=== PATIENT | female | born 1970 | race Caucasian/White ===

== ENCOUNTER → 2016-11-26 | Outpatient (CLI) | payer OTHER ==
[~2016-11-26] MED LIST: CALC-279 PO; CETI10TA84 PO; CHOL100010 PO; CLON0.5T3 PO; CYAN10005 SL; CYCL10TA6 PO; DICY10CA12 PO; DRGTP50 TOP; ESCI1TAB6 PO; FURO-85 PO; GABA600T PO; GLYC1TAB18 PO; LEVO175T3 PO; LINA1CAP2 PO; MAGN1CAP2 PO; MIRT30TA2 PO; MULT-506 PO; NUTR1LIQ94 PO; ONDA4TAB46 PO; OXYC-57 PO; OXYC1TAB3 PO; PANT1TAB48 PO; POLY335025 PO; POTA10CA28 PO; PRM625 PO; PROGLYCEM PO; SPIR25TA89 PO; SUMA50TA15 PO; TRIATAB3 PO; ZINC100T2 PO; [UNRECOGNIZED DRUG - CODE] PO; [UNRECOGNIZED DRUG - CODE] PO
[2016-11-26 18:36] LABS: BLOOD UREA NITROGEN 12 mg/dl (7-18); BUN/CREATININE RATIO 11.9 (10-20); CARBON DIOXIDE 31 mmol/L (21-32); CHLORIDE 98 mmol/L (98-107); GLUCOSE 85 mg/dl (70-99); POTASSIUM 2.9 mmol/L (3.5-5.1); SODIUM 136 mmol/L (136-145)
[2016-11-26 18:44] LABS: PREALBUMIN 21.3 mg/dl (20-40); TOTAL IRON BINDING CAPACITY 439 mcg/dl (250-450)
--- NOTE | 2016-12-04 09:17 | CODING QUERY MEDICAL NECESSITY ---
CQSUPPORTING DIAGNOSIS NEEDED A supporting diagnosis is required for the test/procedure performed on this patient in order for us to be reimbursed by the patient's insurance. Please provide a supporting diagnosis for the following test/procedure listed below next to the test name along with your signature. *If there is no additional diagnosis for this patient that would support the following test/procedure please document that below next to the test/procedure. Test(s)/Procedure(s) that require a supporting diagnosis: DOS 11/26/16 VITAMINS AND METABOLIC FUNCTION-VITAMIN D AND VITAMIN B12 Provider Signature: Date: Thank you Vira Gamble Health Information Management Once completed, please kindly fax back to [phone] For questions please call [phone]
== END | disposition home or self-care (01) ==
LOC: C.LABMFLN 17:14
PROVIDERS: ATTEND Family Medicine
DX: E16.2 Hypoglycemia, unspecified (principal); E03.9 Hypothyroidism, unspecified; M85.80 Other specified disorders of bone density and structure, unspecified site; R60.9 Edema, unspecified; Z98.84 Bariatric surgery status; E55.9 Vitamin D deficiency, unspecified; E53.8 Deficiency of other specified B group vitamins

== ENCOUNTER → 2016-12-24 | Outpatient (CLI) | payer OTHER ==
[2016-12-24 18:13] LABS: MANUAL MICROSCOPIC REQUIRED? NO; REVIEW REQ? YES; URINE APPEARANCE CLEAR (CLEAR); URINE BILIRUBIN NEG (NEG); URINE COLOR YELLOW; URINE NITRITE NEG (NEG); UROBILINOGEN NEG (NEG); ZZUR CULT IF INDIC CLEAN CATCH YES
== END | disposition home or self-care (01) ==
LOC: C.LABMFLN 10:28
PROVIDERS: ATTEND Urology
DX: R39.15 Urgency of urination (principal); R82.8 Abnormal findings on cytological and histological examination of urine

== ENCOUNTER → 2017-03-13 | Outpatient (CLI) | payer OTHER ==
[~2017-03-13] MED LIST changes: -GLYC1TAB18 PO; +GLYC2TAB16 PO; +OPTIRAY 320 IV PRN
--- NOTE | 2017-03-13 11:50 | DIAGNOSTIC IMAGING REPORT ---
CT ABD/PELVIS COMBO WITH ORAL CLINICAL HISTORY: Generalized abdominal pain COMPARISON STUDY: None. TECHNIQUE: Unenhanced images are obtained through the abdomen and pelvis. The patient was then scanned in a dynamic helical fashion during intravenous administration of [address] DOSE: 551.93 mGy.cm FINDINGS: Lower chest: There are minimal left basilar atelectatic changes. Liver: The contrast-enhanced liver is normal in size, contour, and attenuation. There is no intrahepatic biliary ductal dilatation. The hepatic veins and portal veins are patent. Gallbladder: Surgically absent Spleen: Normal in size and attenuation. Pancreas: Unremarkable. Adrenal glands: Unremarkable. Kidneys: There is a punctate nonobstructing upper pole left renal calculus. There is a 15 mm upper pole left renal cyst. There is there is a 3 mm hypodensity within the lower pole the left kidney likely representing a cyst. There are multiple small right renal cysts, the largest of which measures 9 mm.. Bowel: There are postsurgical changes of a gastric bypass. There are no transition zones indicate bowel obstruction. There is moderately extensive fecal retention. Clinical correlation in regards to constipation is recommended. Peritoneum: There is no intraperitoneal free air or abdominal ascites. Vasculature: The abdominal aorta is normal in course and caliber. Adenopathy: None. Pelvic viscera: The uterus appears surgically absent Skeletal structures: Degenerative changes are present most pronounced the L4-5 level. IMPRESSION: 1. Postsurgical changes are prior gastric bypass 2. No evidence of bowel obstruction. No evidence of free air 3. No acute inflammatory changes 4. Moderate fecal retention. Clinical correlation in regards to constipation is recommended Electronically signed by: Oscar Lehman M.D. 03/13/2017 11:49 AM Dictated Date/Time: 03/13/2017 11:43 AM
== END | disposition home or self-care (01) ==
LOC: C.CTS 11:10
PROVIDERS: ATTEND Surgery
DX: R10.9 Unspecified abdominal pain (principal); K59.00 Constipation, unspecified

== ENCOUNTER → 2017-03-30 | Outpatient (CLI) | payer OTHER ==
[~2017-03-30] MED LIST changes: -OPTIRAY 320 IV PRN
[2017-03-30 18:17] LABS: ALT/SGPT 19 U/L (12-78); BLOOD UREA NITROGEN 14 mg/dl (7-18); BUN/CREATININE RATIO 15.6 (10-20); CARBON DIOXIDE 31 mmol/L (21-32); CHLORIDE 101 mmol/L (98-107); CREATININE 0.91 mg/dl (0.60-1.20); GLUCOSE 85 mg/dl (70-99); POTASSIUM 3.5 mmol/L (3.5-5.1); SODIUM 139 mmol/L (136-145)
[2017-03-30 18:22] LABS: HEMATOCRIT 37.6 % (37-47); MEAN CORPUSCULAR HEMOGLOBIN 28.7 pg (25-34); MEAN CORPUSCULAR HGB CONC 31.9 g/dl (32-36); PLATELET COUNT 222 K/uL (130-400); RED BLOOD COUNT 4.18 M/uL (4.2-5.4); WHITE BLOOD COUNT 4.57 K/uL (4.8-10.8)
[2017-03-30 18:27] LABS: ALB/GLOB RATIO 1.1 (0.9-2); ALKALINE PHOSPHATASE 88 U/L (45-117); AST/SGOT 21 U/L (15-37)
[2017-03-30 18:32] LABS: CALCIUM 9.9 mg/dl (8.5-10.1)
== END | disposition home or self-care (01) ==
LOC: C.LABMFLN 16:11
PROVIDERS: ATTEND Family Medicine
DX: R60.9 Edema, unspecified (principal); E87.6 Hypokalemia; N04.9 Nephrotic syndrome with unspecified morphologic changes; R00.0 Tachycardia, unspecified

== ENCOUNTER → 2017-05-28 | Day surgery (SDC) | payer OTHER ==
[2017-05-21 14:49] VITALS: Ht 162.6 cm; Wt 59.1 kg
[~2017-05-28] VITALS: Ht 162.6 cm; Wt 59.1 kg
[~2017-05-28] MED LIST changes: +FENTANYL CITRATE INJ 50 MCG/1 ML 2 ML VIAL ONE; -GLYC2TAB16 PO; +LIDOCAINE HCL 2% 2 ML VIAL (20MG/ML) ONE; -LINA1CAP2 PO; -NUTR1LIQ94 PO; -OXYC-57 PO; -PROGLYCEM PO; +PROPOFOL IV EMULSION 10 MG/ML 20 ML VIAL IV ONE; +SODIUM CHLORIDE 0.9% 500ML 500 ML IV ONE; -TRIATAB3 PO
--- NOTE | 2017-05-28 15:52 | Endo History and Physical ---
History & Physical Date of Service: May 28, 2017. Chief Complaint: Abdominal pain Gastric bypass s/p reversal Referring Physician: Case History of Present Illness 47 yo CF who presents for EGD secondary to abdominal pain and history of gastric bypass with reversal. Past Surgical History Hx Cardiac Surgery: No Hx Internal Defibrillator: No Hx Pacemaker: No Hx Abdominal Surgery: Yes (PARTIAL HYSTER, GASTRIC BYPASS AND REVERSAL, [place], X2) Hx of Implantable Prosthesis: No Hx Post-Op Nausea and Vomiting: No Hx Cancer Surgery: No Hx Thoracic Surgery: No Hx Orthopedic: No Hx Urinary Tract Surgery: No Family History Polyp, IBD Social History Smoking Status: Former Smoker Hx Substance Use: Yes (SEE MED LIST) Hx Alcohol Use: No Allergies Coded Allergies: Gentamicin (Verified Allergy, Unknown, EYE REDNESS AND SWELLING, 05/21/17) Sulfamethoxazole w/Trimethoprim (Verified Allergy, Unknown, RASH, 05/21/17) Trazodone (Verified Allergy, Unknown, HEART RACING AND POUNDING; MIGRAINE , 05/21/17) Current Medications Reported Home Medications Medications Dose Route/Sig Max Daily Dose Days Date Category Micro-K Ext Rel (Potassium Chloride) 10 Meq Capcr 10 Meq PO DAILY PRN 05/21/17 Reported Lasix (Furosemide) 20 Mg Tab 20 Mg PO DAILY PRN 05/21/17 Reported Flexeril (Cyclobenzaprine Hcl) 10 Mg Tab 10 Mg PO TID PRN 05/21/17 Reported Dicyclomine Hcl 10 Mg Cap 1 Cap PO Q8H PRN 05/21/17 Reported Zofran (Ondansetron HCl) 4 Mg Tab 4 Mg PO Q4H PRN 05/21/17 Reported Roxicodone Ir (Oxycodone HCl) 5 Mg Tab 5 Mg PO QID 05/21/17 Reported Fentanyl 50 Mcg Tdsy 1 Patch TOP Q72H 05/21/17 Reported Aldactone (Spironolactone) 25 Mg Tab 25 Mg PO QAM 05/21/17 Reported Proglycem (Diazoxide) 50 Mg/1 Ml Susp 100 Mg PO TID 05/21/17 Reported Lexapro (Escitalopram Oxalate) 5 Mg Tab 5 Mg PO QAM 05/21/17 Reported Premarin (Estrogens Conjugated) 0.625 Mg Tab 0.625 Mg PO QAM 05/21/17 Reported Cytotec (Misoprostol) 200 Mcg Tab 3 Tabs PO BID 05/21/17 Reported Remeron Soltab (Mirtazapine) 30 Mg Soltab 30 Mg PO HS 05/21/17 Reported Levothyroxine Sodium 175 Mcg Tab 1 Tab PO QAM 05/21/17 Reported Zinc 100 Mg Tab 1 Tab PO HS 05/21/17 Reported Calcium Citrate + D (Calcium Citrate-Vitamin D) 1 Tab Tab 1 Tab PO BID 05/21/17 Reported Multivitamin (Multivitamins) Tab 1 Tab PO QAM 05/21/17 Reported Imitrex (Sumatriptan Succinate) 50 Mg Tab 50 Mg PO UD PRN 09/03/14 Reported Miralax (Polyethylene Glycol 3350) 1 Pow Pow 17 Gm PO DAILY PRN 09/03/14 Reported Klonopin (Clonazepam) 0.5 Mg Tab 0.5 Mg PO BID 09/03/14 Reported Vitamin D (Cholecalciferol) 1,000 Inter.unit Tab 1,000 Inter.unit PO M-W-F 09/03/14 Reported Vitamin B-12 (Cyanocobalamin) 1,000 Mcg Tab 1,500 Mcg SL QAM 09/03/14 Reported Zyrtec (Cetirizine HCl) 10 Mg Tab 10 Mg PO QAM 09/03/14 Reported Protonix (Pantoprazole) 40 Mg Tab 40 Mg PO BID 09/03/14 Reported Magnesium (Magnesium Oxide (Mg Supplement) 400 Mg Cap 400 Mg PO HS 09/03/14 Reported Neurontin (Gabapentin) 600 Mg Tab 600 Mg PO QID 09/03/14 Reported Vital Signs Weight (Kilograms): 59.09 Height (Feet): 5 Height (Inches): 4 Date Time Temp Pulse Resp B/P (MAP) Pulse Ox O2 Delivery O2 Flow Rate FiO2 05/28/17 15:07 37.3 96 20 110/76 (87) 99 Room Air Physical Exam General Appearance: WD/WN, no apparent distress Respiratory/Chest: Auscultation: breath sounds normal Cardiovascular: Heart Auscultation: RRR Abdomen: Bowel Sounds: normal Inspection & Palpation: soft, non-distended, no tenderness, guarding & rebound Assessment and Plan Assessment: 47 yo CF who presents for EGD secondary to abdominal pain and history of gastric bypass with reversal. Plan: Proceed with colonoscopy.
--- NOTE | 2017-05-28 16:00 | Discharge Instructions ---
Endoscopy Patient Instructions Date / Procedure(s) Performed May 28, 2017. EGD Allergy Information Coded Allergies: Gentamicin (Verified Allergy, Unknown, EYE REDNESS AND SWELLING, 05/21/17) Sulfamethoxazole w/Trimethoprim (Verified Allergy, Unknown, RASH, 05/21/17) Trazodone (Verified Allergy, Unknown, HEART RACING AND POUNDING; MIGRAINE , 05/21/17) Discharge Date / Findings May 28, 2017. Gastritis s/p biopsies Medication Instructions OK to resume all medications today as prescribed Reported Home Medications Medications Dose Route/Sig Max Daily Dose Days Date Category Micro-K Ext Rel (Potassium Chloride) 10 Meq Capcr 10 Meq PO DAILY PRN 05/21/17 Reported Lasix (Furosemide) 20 Mg Tab 20 Mg PO DAILY PRN 05/21/17 Reported Flexeril (Cyclobenzaprine Hcl) 10 Mg Tab 10 Mg PO TID PRN 05/21/17 Reported Dicyclomine Hcl 10 Mg Cap 1 Cap PO Q8H PRN 05/21/17 Reported Zofran (Ondansetron HCl) 4 Mg Tab 4 Mg PO Q4H PRN 05/21/17 Reported Roxicodone Ir (Oxycodone HCl) 5 Mg Tab 5 Mg PO QID 05/21/17 Reported Fentanyl 50 Mcg Tdsy 1 Patch TOP Q72H 05/21/17 Reported Aldactone (Spironolactone) 25 Mg Tab 25 Mg PO QAM 05/21/17 Reported Proglycem (Diazoxide) 50 Mg/1 Ml Susp 100 Mg PO TID 05/21/17 Reported Lexapro (Escitalopram Oxalate) 5 Mg Tab 5 Mg PO QAM 05/21/17 Reported Premarin (Estrogens Conjugated) 0.625 Mg Tab 0.625 Mg PO QAM 05/21/17 Reported Cytotec (Misoprostol) 200 Mcg Tab 3 Tabs PO BID 05/21/17 Reported Remeron Soltab (Mirtazapine) 30 Mg Soltab 30 Mg PO HS 05/21/17 Reported Levothyroxine Sodium 175 Mcg Tab 1 Tab PO QAM 05/21/17 Reported Zinc 100 Mg Tab 1 Tab PO HS 05/21/17 Reported Calcium Citrate + D (Calcium Citrate-Vitamin D) 1 Tab Tab 1 Tab PO BID 05/21/17 Reported Multivitamin (Multivitamins) Tab 1 Tab PO QAM 05/21/17 Reported Imitrex (Sumatriptan Succinate) 50 Mg Tab 50 Mg PO UD PRN 09/03/14 Reported Miralax (Polyethylene Glycol 3350) 1 Pow Pow 17 Gm PO DAILY PRN 09/03/14 Reported Klonopin (Clonazepam) 0.5 Mg Tab 0.5 Mg PO BID 09/03/14 Reported Vitamin D (Cholecalciferol) 1,000 Inter.unit Tab 1,000 Inter.unit PO M-W-F 09/03/14 Reported Vitamin B-12 (Cyanocobalamin) 1,000 Mcg Tab 1,500 Mcg SL QAM 09/03/14 Reported Zyrtec (Cetirizine HCl) 10 Mg Tab 10 Mg PO QAM 09/03/14 Reported Protonix (Pantoprazole) 40 Mg Tab 40 Mg PO BID 09/03/14 Reported Magnesium (Magnesium Oxide (Mg Supplement) 400 Mg Cap 400 Mg PO HS 09/03/14 Reported Neurontin (Gabapentin) 600 Mg Tab 600 Mg PO QID 09/03/14 Reported Provider Instructions Activity Restrictions - No exercising or heavy lifting for 24 hours. - Do not drink alcohol the day of the procedure. - Do not drive a car or operate machinery until the day after the procedure. - Do not make any important decisions or sign important papers in 24 hours after the procedure. Following Day: - Return to full activity which may include returning to work/school. Diet Start your diet with liquids and light foods (jello, soup, juice, toast). Then eat your usual diet if not nauseated. Treatment For Common After Affects For mild abdominal pain, bloating, or excessive gas: - Rest - Eat lightly - Lie on right side Follow-Up Information Follow-up with Dr. Hackett as scheduled Anesthesia Information What You Should Know You have had a procedure that required some medicine to reduce anxiety and discomfort. This treatment is called moderate sedation. After receiving the treatment, you may be sleepy, but you will be able to breathe on your own. The effects of the treatment may last for several hours. Follow these instructions along with Activity/Diet recommendations noted above: * Do NOT do anything where dizziness or clumsiness would be dangerous. * Rest quietly at home today, then you can be up and about tomorrow. * Have a responsible person stay with you the rest of today. * You may have had an I.V. today. If so, you may take the dressing off later today. Recommendations Call your doctor if: * Trouble breathing * Continuous vomiting for more than 24 hours * Temperature above 101 degrees * Severe abdominal pain or bloating * Pain not relieved by pain medicine ordered * There is increased drainage or redness from any incision * A large amount of rectal bleeding greater than 2-3 tablespoons. (If you had a polyp/s removed or have hemorrhoids, a small amount of blood - from the rectum is to be expected.) * You have any unanswered questions or concerns. IN THE EVENT OF A SERIOUS EMERGENCY, GO TO THE NEAREST EMERGENCY ROOM Your discharge instructions were prepared by provider Andrew Hackett. Patient Instructions Signature Page Sonam Walker Patient (or Guardian) Signature/Date: I have read and understand the instructions given to me by my caregivers. Caregiver/RN/Doctor Signature/Date: The above-named patient and/or guardian has received patient instructions on this date. + Original Patient Signature Page (only) stays with chart. Please make copy for patient.
--- NOTE | 2017-05-28 16:07 | GI REPORT ---
Procedure Date: 05/28/2017 3:31 PM Procedure: Upper GI endoscopy Indications: Epigastric abdominal pain, Status post gastric bypass Medicines: Monitored Anesthesia Care Complications: No immediate complications. Estimated Blood Loss: Estimated blood loss: none. Procedure: Pre-Anesthesia Assessment: - Prior to the procedure, a History and Physical was performed, and patient medications and allergies were reviewed. The patient's tolerance of previous anesthesia was also reviewed. The risks and benefits of the procedure and the sedation options and risks were discussed with the patient. All questions were answered, and informed consent was obtained. Prior Anticoagulants: The patient has taken no previous anticoagulant or antiplatelet agents. ASA Grade Assessment: III - A patient with severe systemic disease. After reviewing the risks and benefits, the patient was deemed in satisfactory condition to undergo the procedure. After obtaining informed consent, the endoscope was passed under direct vision. Throughout the procedure, the patient's blood pressure, pulse, and oxygen saturations were monitored continuously. The Scope was introduced through the mouth, and advanced to the second part of duodenum. The upper GI endoscopy was accomplished without difficulty. The patient tolerated the procedure well. Findings: The esophagus was normal. A reversal of prior gastric bypass was found with findings of anastomosis. The scar tissue was healthy in appearance. Localized mild inflammation characterized by erythema was found in the gastric antrum. Biopsies were taken with a cold forceps for histology. The examined duodenum was normal. Impression: - Normal esophagus. - Scar in the anastomosis. - Gastritis. Biopsied. - Normal examined duodenum. Recommendation: - Resume previous diet. - Continue present medications. - Await pathology results. - Return to GI office as previously scheduled. Andrew Hackett, DO 05/28/2017 4:06:18 PM This report has been signed electronically. Note Initiated On: 05/28/2017 3:31 PM I attest to the content of the Intraoperative Record and orders documented therein, exceptions below
--- NOTE | 2017-05-28 16:22 | Anesthesiology Progress Note ---
Anesthesia Post Op Note Date & Time May 28, 2017 at 16:22 Vital Signs Pain Intensity: 0 Vital Signs Past 12 Hours Date Time Temp Pulse Resp B/P (MAP) Pulse Ox O2 Delivery O2 Flow Rate FiO2 05/28/17 16:16 84 20 119/63 (81) 98 Room Air 05/28/17 16:01 87 20 114/76 (89) 99 Room Air 05/28/17 15:07 37.3 96 20 110/76 (87) 99 Room Air Notes Mental Status: alert / awake / arousable, participated in evaluation Pt Amnestic to Procedure: Yes Nausea / Vomiting: adequately controlled Pain: adequately controlled Airway Patency, RR, SpO2: stable & adequate BP & HR: stable & adequate Hydration State: stable & adequate Anesthetic Complications: no major complications apparent
[2017-05-28 16:34] VITALS: BP 102/73; PULSE 84; O2SAT 99
== END | disposition home or self-care (01) ==
LOC: C.GI 14:01
PROVIDERS: ATTEND Internal Medicine
DX: K29.50 Unspecified chronic gastritis without bleeding (principal); Z98.84 Bariatric surgery status; Z83.71 Family history of colonic polyps; Z83.79 Family history of other diseases of the digestive system; Z87.891 Personal history of nicotine dependence; Z79.899 Other long term (current) drug therapy

== ENCOUNTER → 2017-06-10 | Outpatient (CLI) | payer OTHER ==
[~2017-06-10] MED LIST changes: -FENTANYL CITRATE INJ 50 MCG/1 ML 2 ML VIAL ONE; -LIDOCAINE HCL 2% 2 ML VIAL (20MG/ML) ONE; -PROPOFOL IV EMULSION 10 MG/ML 20 ML VIAL IV ONE; -SODIUM CHLORIDE 0.9% 500ML 500 ML IV ONE
[2017-06-10 18:32] LABS: URINE APPEARANCE CLEAR (CLEAR); URINE BILIRUBIN NEG (NEG); URINE COLOR YELLOW; URINE EPITHELIAL CELL AUTO 0-5 /lpf (0-5); URINE NITRITE NEG (NEG); URINE SPECIFIC GRAVITY 1.018 (1.000-1.030); UROBILINOGEN NEG (NEG)
[2017-06-10 18:36] LABS: MANUAL MICROSCOPIC REQUIRED? NO; REVIEW REQ? NO
== END | disposition home or self-care (01) ==
LOC: C.LABSPEC 17:34
PROVIDERS: ATTEND Physician Assistant
DX: R39.9 Unspecified symptoms and signs involving the genitourinary system (principal)

== ENCOUNTER → 2017-10-21 | Outpatient (CLI) | payer OTHER ==
[~2017-10-21] MED LIST changes: -CLON0.5T3 PO; +KLN/5 PO; +OXYC-737 PO; -OXYC1TAB3 PO; +PANT1TAB3 PO; -PANT1TAB48 PO; +SPIR25TA5 PO; -SPIR25TA89 PO
[2017-10-21 13:07] LABS: BLOOD UREA NITROGEN 10 mg/dl (7-18); CALCIUM 9.5 mg/dl (8.5-10.1); CARBON DIOXIDE 31 mmol/L (21-32); CREATININE 0.89 mg/dl (0.60-1.20); GLUCOSE 94 mg/dl (70-99); POTASSIUM 3.7 mmol/L (3.5-5.1); SODIUM 137 mmol/L (136-145)
== END | disposition home or self-care (01) ==
LOC: C.LABMFLN 09:54
PROVIDERS: ATTEND Family Medicine
DX: E03.9 Hypothyroidism, unspecified (principal); E87.6 Hypokalemia

== ENCOUNTER → 2018-06-02 | Outpatient (CLI) | payer OTHER | END | disposition home or self-care (01) | LOC: C.LABMFLN 14:57 | PROVIDERS: ATTEND Internal Medicine Endocrinology, Diabetes & Metabolism | DX: E03.9 Hypothyroidism, unspecified (principal) ==

== ENCOUNTER → 2018-06-03 | Outpatient (CLI) | payer OTHER ==
[2018-06-03 18:30] LABS: ALBUMIN 4.1 gm/dl (3.4-5.0)
== END | disposition home or self-care (01) ==
LOC: C.LABMFLN 14:14
PROVIDERS: ATTEND Internal Medicine Endocrinology, Diabetes & Metabolism
DX: R53.82 Chronic fatigue, unspecified (principal); Z98.84 Bariatric surgery status; M85.80 Other specified disorders of bone density and structure, unspecified site